=== PATIENT | male | born 1985 | race African-American/Black ===

== ENCOUNTER 2022-02-24 15:33 | Outpatient (CLI) | payer BC, SELFPAY ==
--- NOTE | ~2022-02-24 | US_ITS ---
EXAMINATION: US renal BI DATE: 02/24/2022 16:18 INDICATION: INCREASED CREATINE KINASE LEVEL TECHNIQUE: Multiple grayscale and Doppler ultrasound images of the kidneys were obtained. COMPARISON: None. FINDINGS: The right kidney measures 11.8 x 4.5 x 5.6 cm. The left kidney measures 9.7 x 6.3 x 6.9 cm. The kidne ys demonstrate normal parenchymal echogenicity. No renal masses There is no hydronephrosis. The bladd er is normal. IMPRESSION: Unremarkable renal sonogram findings. Reviewed, dictated and finalized at location K.
== END 2022-02-24 15:34 | disposition home or self-care (01) ==
PROVIDERS: PCP Student in an Organized Health Care Education/Training Program; Visit Provider Internal Medicine Nephrology
DX: R74.8 Abnormal levels of other serum enzymes (principal)
CPT/HCPCS: 76775

== ENCOUNTER 2023-12-02 11:05 | Outpatient (CLI) | payer BC, SELFPAY ==
[2023-12-02 12:06] LABS: Complement C3 117 mg/dL (88-165)
[2023-12-02 13:15] LABS: Creatinine Urine 23.4 mg/dL; Total Protein Urine Random 30 mg/dL; Ur Ttl Prot Creatinine Ratio 1.28 mg/mg (0-0.20)
[2023-12-03 11:04] LABS: Protein, Total 7.7 g/dL (6.1-8.1)
[2023-12-03 13:17] LABS: Creatinine, Random Urine 24 mg/dL (20-320); Total Protein/Creatinine Ratio 542 mg/g creat (25-148)
[2023-12-03 16:03] LABS: Albumin 4.5 g/dL (3.8-4.8); Alpha 1 Globulin 0.3 g/dL (0.2-0.3); Alpha 2 Globulin 0.7 g/dL (0.5-0.9); Beta 1 Globulin 0.4 g/dL (0.4-0.6); Gamma Globulin 1.4 g/dL (0.8-1.7)
[2023-12-04 14:49] LABS: Anti Glomerular Basement Memb <1.0 AI
[2023-12-05 02:58] LABS: ANCA Screen NEGATIVE (NEGATIVE)
== END 2023-12-02 11:06 | disposition home or self-care (01) ==
LOC: ANHLAB 11:08
PROVIDERS: PCP Student in an Organized Health Care Education/Training Program; Visit Provider Internal Medicine Nephrology
DX: E11.29 Type 2 diabetes mellitus with other diabetic kidney complication (principal); R80.9 Proteinuria, unspecified
CPT/HCPCS: 36415; 82570; 83520; 84155; 84156; 84165; 84166; 86036; 86038; 86039; 86160; 86225